=== PATIENT | female | born 2000 | race Two or more races ===

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

== ENCOUNTER 2021-05-02 13:04 | Outpatient (CLI) | payer OTHER | END 2021-05-02 13:15 | disposition home or self-care (01) | LOC: RAD 13:04 | PROVIDERS: ATTEND Orthopaedic Surgery | DX: M41.26 Other idiopathic scoliosis, lumbar region (principal) ==

== ENCOUNTER 2021-06-13 00:22 | Emergency (ER) | payer OTHER ==
[~2021-06-13] VITALS: Ht 160 cm; Wt 72.6 kg
[2021-06-13] MEDS ORDERED: DEPAKOTE ER500 MG (00:36)
[2021-06-13] MEDS ORDERED: KETO10TA2 PO (05:07)
== END 2021-06-13 05:13 ==
LOC: ER 00:22
DX: T75.4XXA Electrocution, initial encounter (principal); W86.1XXA Exposure to industrial wiring, appliances and electrical machinery, initial encounter; Y93.9 Activity, unspecified; Y92.9 Unspecified place or not applicable; M79.641 Pain in right hand; M25.511 Pain in right shoulder

== ENCOUNTER 2022-01-22 04:15 | Emergency (ER) | payer OTHER ==
[~2022-01-22] VITALS: Ht 154.9 cm; Wt 66.2 kg
[~2022-01-22 04:15] MED LIST changes: +DEPAKOTE ER500 MG; +KETO10TA2 PO
== END 2022-01-22 09:40 | disposition left against medical advice (07) ==
LOC: ER 04:15
DX: J06.9 Acute upper respiratory infection, unspecified (principal); Z20.822 Contact with and (suspected) exposure to COVID-19